=== PATIENT | female | born 1940 | race Caucasian/White ===

== ENCOUNTER → 2017-01-21 | Outpatient (CLI) | payer MEDICARE, BC, MEDICAID ==
[~2017-01-21] MED LIST: ALBUTEROL0.09 MG/A4 IH; ALBUTEROL1.25 MG/3 IH; ANTI-DIARRHEAL2 MG PO; ASPIR-LOX325 MG PO; ASPIRIN E.C. 8181 MG PO; BENICAR20 MG PO; BENICAR5 MG PO; BUMEX 1MG TA1 MG/TA1 PO; CARAFATE 1GM1 G PO; CARAFATE1 GM PO; CELEBREX 200MG200 MG PO; CYMBALTA 60MG60 MG PO; CYMBALTA60 MG PO; DAILY MULTI VIT1 TAB PO; DALIRESP500 MCG PO; DETROL LA 4MG4 MG PO; FLAXSEED OIL1 CAP PO; FLEXERIL 1010 MG/TAB PO; FLOVENT DI250 MCG/Ac IH; HCTZ 25MG TAB25 MG PO; IMODIUM 2MG CAPS2 MG PO; IPRATROPIUM BROM3 M1 IH; K-DUR 2020 MEQ PO; LORTAB 5MG PO; METAMUCIL1 WAF PO; MUCINEX1200 MG PO; NEURONTIN300 MG PO; NEURONTIN300 MG/CAP PO; NORCO 325 MG-51 TAB PO; PLAVIX 75MG TAB75 MG PO; PRILOTC PO; PULMICORT180 MCG/A1 IH; RT SPIRIVA18 MCG IH; SINGULAIR 110 MG/TAB PO; SPIRIVA18 MCG IH; THEO-24 20200 MG/CAP PO; THEO-DUR 2200 MG/TAB PO; TRICOR145 MG PO; VISTARIL 2525 MG/CAP PO; XANAX 0.5MG0.5 MG PO; XANAX 1MG1 MG PO; XANAX0.25 MG PO; ZYRTEC 10MG10 MG PO
== END ==
LOC: COL.RAD 12:51
DX: M25.551 Pain in right hip (principal); M25.552 Pain in left hip
CPT/HCPCS: J3301; Q9967

== ENCOUNTER → 2017-06-14 | Outpatient (CLI) | payer MEDICARE, BC, MEDICAID ==
[~2017-06-14] VITALS: Ht 160 cm; Wt 71.5 kg
[~2017-06-14] MED LIST changes: +B-121000 MCG PO; +BUSPAR10 MG PO; +COLACE 100100 MG/CAP PO; +DITROPAN XL 5MG5 M1 PO; +FERROUSGLUC256MG PO; +FLONASEALLERGY; +FLONASEALLERGY NS; +FLOVENT 110MCG7.9 GM IH; +GLUCOPHAGE500 MG/TAB PO; +GOOD NEIGH3.4 GM/Dos PO; +HCTZ12.5TAB PO; +LASIX 40MG TABL40 MG PO; +LOPRESSOR 225 MG/TAB PO; +MELAT3MGTAB PO; +MIRTAZAPINE7.5 MG PO; +PRIL40 PO; +PRINIVIL2.5 MG PO; +PROBIOTIC ACID1 EAC3 PO; +SYSTANE 0.4%-0.1 SOL OP; +TYLENOL 500MG500 MG PO; +XANAX 0.5MG0.5 MG; +ZOCOR 10MG10 MG PO
[2017-06-14 12:55] VITALS: BP 121/65; PULSE 71
[2017-06-14 13:41] VITALS: BP 132/72; PULSE 70
== END ==
LOC: COL.RAD 12:03
DX: M54.5 Low back pain (principal); I71.4 Abdominal aortic aneurysm, without rupture
CPT/HCPCS: J3301